=== PATIENT | female | born 1980 | race Caucasian/White ===

== ENCOUNTER 2019-04-12 20:36 | Emergency (ER) | payer OTHER ==
--- NOTE | 2019-04-12 21:11 | ED ---
Headache - HPI Summary HPI Summary: This patient is a 38 year old female presenting to [facility] with a chief complaint of migraines since 6 hours ago. The patient reports nausea and vomiting. She states she is worried she might have botulism from something she ate last night. The patient denies any paralysis or numbness. The patient states she does not regularly get these symptoms. She said the headache has gotten slightly better since onset and rates it 2/10 in severity. - History Of Current Complaint Chief Complaint: EDHeadache Stated Complaint: HEADACHE/VOMITING PER PT Time Seen by Provider: 04/12/19 21:03 Hx Obtained From: Patient Onset/Duration: Started hours ago Character: Migraine Associated Signs And Symptoms: Nausea, Vomiting - Allergies/Home Medications Allergies/Adverse Reactions: Allergies Allergy/AdvReac Type Severity Reaction Status Date / Time Latex, Natural Rubber Allergy Swelling Verified 04/12/19 20:42 Sulfa (Sulfonamide Allergy Hives Verified 04/12/19 20:42 Antibiotics) Home Medications: Home Medications NK [No Home Medications Reported] 04/12/19 [History Confirmed 04/12/19] PMH/Surg Hx/FS Hx/Imm Hx Cardiovascular History: Denies: Hx Coronary Artery Disease Respiratory History: Reports: Hx Pneumonia Infectious Disease History: No Infectious Disease History: Denies: Traveled Outside the [place] in Last 30 Days - Family History Known Family History: Negative: Seizure Disorder - Social History Alcohol Use: Occasionally Substance Use Type: Reports: None Smoking Status (MU): Never Smoked Tobacco Review of Systems Positive: Vomiting, Nausea Neurological: Other - Neg: Paralysis Positive: Headache. Negative: Numbness All Other Systems Reviewed And Are Negative: Yes Physical Exam - Summary Physical Exam Summary: Appearance: Well appearing, no pain distress Skin: warm, dry, reflects adequate perfusion Head/face: normal Eyes: EOMI, AMANDA ENT: normal Neck: supple, non-tender Respiratory: CTA, breath sounds present Cardiovascular: RRR, pulses symmetrical Abdomen: non-tender, soft Musculoskeletal: normal, strength/ROM intact Neuro: normal, sensory motor intact, A&Ox3 Triage Information Reviewed: Yes Vital Signs On Initial Exam: Initial Vitals Temp Pulse Resp BP Pulse Ox 98 F 90 16 118/75 98 04/12/19 20:41 04/12/19 20:41 04/12/19 20:41 04/12/19 20:41 04/12/19 20:41 Vital Signs Reviewed: Yes Diagnostics - Vital Signs Vital Signs Temp Pulse Resp BP Pulse Ox 04/12/19 21:03 71 114/61 100 04/12/19 20:41 98 F 90 16 118/75 98 - Laboratory Result Diagrams: 04/12/19 21:57 04/12/19 21:57 Lab Statement: Any lab studies that have been ordered have been reviewed, and results considered in the medical decision making process. Headache Course/Dx - Course Course Of Treatment: This patient is a 38 year old female presenting to [facility] with a chief complaint of migraines since 6 hours ago. Blood work/UA were unremarkable. The patient will be instructed to bring a stool sample to the lab in order to be tested for botulism, as requested. A plan for discharge was discussed with the patient and she was agreeable with this plan. - Diagnoses Differential Diagnosis/HQI/PQRI: Other - food poisoning Provider Diagnoses: Food poisoning Discharge - Sign-Out/Discharge Documenting (check all that apply): Patient Departure - Discharge Patient Received Moderate/Deep Sedation with Procedure: No - Discharge Plan Condition: Stable Disposition: HOME Patient Education Materials: Food Poisoning (ED) Referrals: No Primary Care Phys,NOPCP [Primary Care Provider] - Additional Instructions: Bring stool sample to the lab for botulism testing. Return to ED with new or worsening symptoms. - Billing Disposition and Condition Condition: STABLE Disposition: Home - Attestation Statements Document Initiated by Yuliet: Yes Documenting Scribe: Jaskaran Nuñez Provider For Whom Yuliet is Documenting (Include Credential): Darshan Sims MD Scribe Attestation: Jaskaran Graves scribed for Darshan Sims MD on 04/12/19 at 2305. Scribe Documentation Reviewed: Yes Provider Attestation: The documentation as recorded by the Jaskaran chisholm accurately reflects the service I personally performed and the decisions made by , Darshan Sims MD Status of Scribe Document: Viewed
[2019-04-12 22:03] LABS: ABS Lymphocytes 0.7 10^3/ul (1.0-4.8); ABS Monocytes 0.6 10^3/ul (0-0.8); ABS Neutrophils 6.1 10^3/ul (1.5-7.7); Eosinophil % 0.4 %; Hematocrit 36 % (35-47); Hemoglobin 12.3 g/dL (12.0-16.0); Lymphocyte % 9.2 %; Mean Corpuscular HGB Conc 34 g/dL (31-36); Mean Corpuscular Hemoglobin 30 pg (27-31); Mean Corpuscular Volume 88 fL (80-97); Mean Platelet Volume 8.4 fL (7.4-10.4); Platelet Count 179 10^3/uL (150-450); Red Blood Count 4.06 10^6 /uL (3.70-4.87); Red Cell Distribution Width 13 % (10-15); White Blood Count 7.4 10^3/uL (3.5-10.8)
[2019-04-12 22:18] LABS: Activated Partial Thrombo Time 37.7 seconds (26.0-38.0); INR 1.15 (0.82-1.09)
[2019-04-12 22:22] LABS: Albumin 4.5 g/dL (3.2-5.2); Anion Gap 8 mmol/L (2-11); CO2 Carbon Dioxide 27 mmol/L (22-32); Chloride 103 mmol/L (101-111); Potassium 3.6 mmol/L (3.5-5.0); Sodium 138 mmol/L (135-145)
[2019-04-12 22:28] LABS: ALT 8 U/L (7-52); AST 15 U/L (13-39); Alkaline Phosphatase 50 U/L (34-104); BUN/Creatinine Ratio 12.5 (8-20); Blood Urea Nitrogen 8 mg/dL (6-24); Globulin 2.3 g/dL (2-4); Glucose 107 mg/dL (70-100); Total Protein 6.8 g/dL (6.4-8.9)
[2019-04-12 22:33] LABS: HCG Pregnancy < 0.60 mIU/mL
[2019-04-12 22:59] VITALS: BP 98/53
== END 2019-04-12 22:57 | disposition home or self-care (01) ==
LOC: ED 20:36
DX: T62.91XA Toxic effect of unspecified noxious substance eaten as food, accidental (unintentional), initial encounter (principal); Y92.9 Unspecified place or not applicable; Z88.2 Allergy status to sulfonamides; Z91.040 Latex allergy status
CPT/HCPCS: 36415; 80053; 84702; 85025; 85610; 85730; 99283